=== PATIENT | female | born 1975 | race Caucasian/White ===

== ENCOUNTER 2019-07-14 10:19 | Day surgery (SDC) | payer MEDICAID ==
[2019-07-10 15:07] LABS: BASOPHILS # (AUTO) 0.1 X10'3 (0-0.2); BASOPHILS % (AUTO) 0.7 % (0-1); EOSINOPHILS # (AUTO) 0.1 X10'3 (0-0.9); EOSINOPHILS % (AUTO) 1.2 % (0-6); LYMPHOCYTES # (AUTO) 2.4 X10'3 (1.1-4.8); LYMPHOCYTES % (AUTO) 27.4 % (21-51); MEAN CORPUSCULAR HEMOGLOBIN 30.4 PG (27.0-31.0); MEAN CORPUSCULAR HGB CONC 33.7 g/dL (33.0-36.5); MEAN CORPUSCULAR VOLUME 90.1 FL (78-98); MEAN PLATELET VOLUME 7.5 FL (7.4-10.4); MONOCYTES # (AUTO) 0.5 X10'3 (0-0.9); MONOCYTES % (AUTO) 5.9 % (2-12); NEUTROPHILS # (AUTO) 5.8 X10'3 (1.8-7.7); NEUTROPHILS % (AUTO) 64.8 % (42-75); PRE OP HEMOGLOBIN 14.2 g/dL (12.0-16.0); PRE OP PLATELET COUNT 371 X10'3 (140-440); RED BLOOD COUNT 4.67 X10'6 (4.20-5.60); RED CELL DISTRIBUTION WIDTH 13.5 % (11.5-14.5)
[2019-07-10 15:19] LABS: ALBUMIN/GLOBULIN RATIO 1.1 (1.1-1.5); ALKALINE PHOSPHATASE 69 IU/L (46-116); BLOOD UREA NITROGEN 10 MG/DL (7-18); BUN/CREATININE RATIO 15.2 (6.6-38.0); CALCIUM 9.2 MG/DL (8.5-10.1); CHLORIDE 104 MMOL/L (99-107); CREATININE 0.66 MG/DL (0.40-0.90); PRE OP ALT 16 U/L (30-65); PRE OP ANION GAP 8 (8-16); PRE OP AST 13 U/L (10-37); PRE OP BILIRUB, TOTAL 0.3 MG/DL (0.0-1.0); PRE OP GLUCOSE 92 MG/DL (70-104); PRE OP POTASSIUM 4.2 MMOL/L (3.4-5.1); PRE OP SODIUM 141 MMOL/L (135-145); TOTAL CARBON DIOXIDE 29.5 MMOL/L (24-32); TOTAL PROTEIN 7.8 G/DL (6.4-8.2); eGFR > 90 ML/MIN
[2019-07-10 15:21] LABS: HCG SERUM QL NEGATIVE
[2019-07-10 15:22] LABS: PRE OP PARTIAL THROMB. TIME 25 SECONDS (22-32); PRE OP PROTIME 9.4 SECONDS (9.0-12.0)
[2019-07-10 15:25] LABS: PRE OP INR < 0.9 INR
[2019-07-14] VITALS (10 sets, daily range): BP systolic 120–164; BP diastolic 75–110
[~2019-07-14] VITALS: Ht 162.6 cm; Wt 70.0 kg
[~2019-07-14 10:19] MED LIST: NO HOME MEDS; ceFOXitin sod/dextrose 2g/50ml 50 ML IV ONE; famotidine 20mg tablet PO ONE; ringers solution, lacted 1,000 ML IV SCH
[2019-07-14] MEDS ORDERED: BUPIVAcaine/PF 2.5 mg/ml (0.25%) 30ml vial ONE (12:08)
[2019-07-14] MEDS ORDERED: ceFAZolin 1000mg inj ONE (12:40)
[2019-07-14] MEDS ORDERED: sevoflurane 250ml liquid IH ONE (12:48)
[2019-07-14] MEDS ORDERED: dexamethasone sod phosphate 10mg/ml inj ONE (12:48)
[2019-07-14] MEDS ORDERED: ringers solution, lacted 1,000 ML IV SCH (12:51)
[2019-07-14] MEDS ORDERED: ondansetron/PF 4mg/2ml inj IV PRN (12:55)
[2019-07-14] MEDS ORDERED: morphine 2 MG/ML inj. syringe IV PRN (12:55)
[2019-07-14] MEDS ORDERED: enalaprilat dihydrate 2.5mg/2ml vial IV PRN (12:55)
[2019-07-14] MEDS ORDERED: labetalol 20mg/4ml (5mg/ml) syringe IV PRN (12:55)
[2019-07-14] MEDS ORDERED: fentaNYL/PF 50MCG/1 ML 2ML syringe IV PRN ×2 (12:55)
[2019-07-14] MEDS ORDERED: fentaNYL/PF 50MCG/1 ML 2ML syringe ONE (12:57)
[2019-07-14] MEDS ORDERED: midazolam 2 mg/2 ml injection ONE (13:01)
[2019-07-14] MEDS ORDERED: ondansetron/PF 4mg/2ml inj ONE ×2 (13:03→13:47)
[2019-07-14] MEDS ORDERED: LIDOcaine 2% (20mg/ml) 5ml vial ONE (13:03)
[2019-07-14] MEDS ORDERED: propofol inj 20 ML IV ONE (13:03)
[2019-07-14] MEDS ORDERED: rocuronium 10mg/ml inj IV ONE (13:03)
[2019-07-14] MEDS ORDERED: glycopyrrolate 0.2mg/ml inj ONE (13:05)
[2019-07-14] MEDS ORDERED: neostigmine methylsulfate 1 MG/ML 10ml vial ONE (13:05)
[2019-07-14] MEDS ORDERED: labetalol 20mg/4ml (5mg/ml) syringe IV ONE (13:30)
--- NOTE | 2019-07-14 13:51 | NUR ---
Received from OR via [facility], accompanied by Anesthesiologist DR PEDROZA and report given by Anesthesiologist. PT RESTLESS, CLAMMY, SWEATY, ABDOMEN W/3 LAP SITES W/HONG, TALIA. PT GIVEN COOL CLOTH FOR FACE,NECK. Addendum: 07/14/19 at 1410 by Dionne Álvarez RN Amended: Links added.
[2019-07-14] MEDS ORDERED: proMETHazine 25mg rectal suppository RC PRN (14:00)
[2019-07-14] MEDS ORDERED: hydrALAZINE 20mg/ml inj. IV PRN (14:00)
[2019-07-14] MEDS ORDERED: scopolamine 1.5mg patch.TD72 TD PRN (14:00)
[2019-07-14] MEDS ORDERED: hydrALAZINE 20mg/ml inj. IV ONE (14:07)
[2019-07-14] MEDS: proCHLORperazine 10 MG/2 ml inj IV PRN ×2 (14:12→14:32)
[2019-07-14] MEDS: morphine 4 MG/ML inj SYRINge IV PRN ×2 (14:21→14:33)
[2019-07-14] MEDS ORDERED: HYDROcodone/acetaminophen 5mg/325mg tablet PO ONE (15:25)
--- NOTE | 2019-07-14 15:41 | NUR ---
D/C INSTRUCTIONS GIVEN AND GONE OVER W/PT WHO VERBALIZED UNDERSTANDING, PT NAUSEA RESOLVED AND PT ABLE TO DRINK FLUIDS AND EAT CRACKERS, PAIN 1-2 LOWER ABDOMEN, NORCO GIVEN FOR RIDE HOME AND TO GET RX FILLED. PT D/CD TO HOME VIA W/C TO PRIVATE VEHICLE W/O INCIDENT. Addendum: 07/14/19 at 1600 by Dionne Álvarez RN Amended: Links added.
== END 2019-07-14 15:41 | disposition home or self-care (01) ==
LOC: PAS 10:19
PROVIDERS: ATTEND Obstetrics & Gynecology
PROC: 0UT7FZZ Resection of Bilateral Fallopian Tubes, Via Natural or Artificial Opening With Percutaneous Endoscopic Assistance (ICD-10-PCS; 2019-07-14)
PROC: 0UT74ZZ Resection of Bilateral Fallopian Tubes, Percutaneous Endoscopic Approach (ICD-10-PCS; principal; 2019-07-14 12:48)
DX: Z30.2 Encounter for sterilization (principal); Z30.09 Encounter for other general counseling and advice on contraception; N83.8 Other noninflammatory disorders of ovary, fallopian tube and broad ligament; I10 Essential (primary) hypertension; Z98.890 Other specified postprocedural states; Z87.891 Personal history of nicotine dependence; Z88.2 Allergy status to sulfonamides; Z88.8 Allergy status to other drugs, medicaments and biological substances
CPT/HCPCS: 36415; 58700; 80053; 82948; 84703; 85025; 85610; 85730; 86885; 86900; 86901; J0360; J0690; J0694; J0780; J1100; J2001; J2250; J2270; J2405; J2704; J2710; J3010; J3490; A4618; J7120

== ENCOUNTER 2021-09-12 18:41 | Emergency (ER) | payer MEDICAID ==
[~2021-09-12] VITALS: Ht 162.6 cm; Wt 68.0 kg
[~2021-09-12 18:41] MED LIST changes: -ceFOXitin sod/dextrose 2g/50ml 50 ML IV ONE; -famotidine 20mg tablet PO ONE; -ringers solution, lacted 1,000 ML IV SCH
[2021-09-12 19:35] VITALS: BP 160/111
[2021-09-12] MEDS ORDERED: LIDOcaine 1% W/epiNEPHrine 1:200,000 10ml vial IJ ONE (20:20)
[2021-09-12] MEDS ORDERED: piperacillin/tazo 3.375gm/50ml 50 ML IV ONE (20:20)
[2021-09-12] MEDS ORDERED: TETanus/Pertussis (Acell)/Diphther VAC/PF (Tdap-Adult) 0.5ml syringe IMVAC ONE (20:20)
[2021-09-12] MEDS ORDERED: LORazepam 2 mg/ml vial IM ONE (20:25)
[2021-09-12 20:47] LABS: BASOPHILS % (AUTO) 0.6 % (0-1); EOSINOPHILS # (AUTO) 0.2 X10'3 (0-0.9); EOSINOPHILS % (AUTO) 2.3 % (0-6); HEMATOCRIT 32.7 % (35.0-45.0); HEMOGLOBIN 10.4 g/dl (12.0-16.0); LYMPHOCYTES # (AUTO) 2.1 X10'3 (1.1-4.8); LYMPHOCYTES % (AUTO) 25.9 % (21-51); MEAN CORPUSCULAR HEMOGLOBIN 25.1 PG (27.0-31.0); MEAN CORPUSCULAR HGB CONC 31.8 g/dL (33.0-36.5); MEAN CORPUSCULAR VOLUME 78.8 FL (78-98); MEAN PLATELET VOLUME 7.2 FL (7.4-10.4); MONOCYTES # (AUTO) 0.9 X10'3 (0-0.9); MONOCYTES % (AUTO) 10.7 % (2-12); NEUTROPHILS # (AUTO) 4.9 X10'3 (1.8-7.7); NEUTROPHILS % (AUTO) 60.5 % (42-75); PLATELET COUNT 353 X10'3 (140-440); RED BLOOD COUNT 4.15 X10'6 (4.20-5.60); RED CELL DISTRIBUTION WIDTH 15.7 % (11.5-14.5); WHITE BLOOD COUNT 8.1 X10'3 (4.5-11.0)
[2021-09-12 21:01] LABS: ALANINE AMINOTRANSFERASE 26 U/L (12-78); ALBUMIN 3.3 G/DL (3.4-5.0); ALBUMIN/GLOBULIN RATIO 0.9 (1.1-1.5); ALKALINE PHOSPHATASE 67 IU/L (46-116); ANION GAP 9 (8-16); ASPARTATE AMINO TRANSFERASE 16 U/L (10-37); BILIRUBIN,TOTAL 0.1 MG/DL (0.1-1.0); BLOOD UREA NITROGEN 12 MG/DL (7-18); BUN/CREATININE RATIO 22.2 (6.6-38.0); CALCIUM 8.9 MG/DL (8.5-10.1); CHLORIDE 103 MMOL/L (99-107); CREATININE 0.54 MG/DL (0.40-0.90); GLUCOSE 114 MG/DL (70-104); POTASSIUM 3.7 MMOL/L (3.5-5.1); SODIUM 138 MMOL/L (135-145); TOTAL CARBON DIOXIDE 26.1 MMOL/L (24-32); TOTAL PROTEIN 7.1 G/DL (6.4-8.2); eGFR > 90 ML/MIN
[2021-09-12] MEDS ORDERED: amox tr/potassium clavulanate 875/125mg TAB PO ONE (21:10)
[2021-09-12] MEDS ORDERED: AMOX-117 PO (21:10)
[2021-09-12] MEDS ORDERED: HYDROcodone/acetaminophen 5mg/325mg tablet PO ONE (21:25)
[2021-09-12] MEDS ORDERED: ondansetron 4mg rapidly disintigrating tab PO ONE (21:25)
[2021-09-12] MEDS ORDERED: HYDR-3965 PO (21:27)
[2021-09-12] MEDS ORDERED: ONDA4TAB12 PO (21:27)
== END 2021-09-12 21:36 | disposition home or self-care (01) ==
LOC: ER 18:42
DX: S61.251A Open bite of left index finger without damage to nail, initial encounter (principal); Z88.2 Allergy status to sulfonamides; Z88.8 Allergy status to other drugs, medicaments and biological substances; Z79.899 Other long term (current) drug therapy; W55.01XA Bitten by cat, initial encounter; Y93.89 Activity, other specified; Y92.89 Other specified places as the place of occurrence of the external cause; Y99.8 Other external cause status
CPT/HCPCS: 10060; 36415; 73130; 80053; 85025; 90471; 90715; 96365; 96372; 99284; J2060; J2543; J3490